=== PATIENT | male | born 1995 | race Caucasian/White ===

== ENCOUNTER 2016-08-04 20:49 | Emergency (ER) | payer BC ==
[~2016-08-04] VITALS: Ht 180.3 cm; Wt 74.8 kg
[~2016-08-04 20:49] MED LIST: NORCO 325-5 MG1 TAB PO; VEETIDS250 MG PO
== END 2016-08-04 21:40 | disposition short-term general hospital (02) ==
LOC: ER 20:49
PROC: 0HQFXZZ Repair Right Hand Skin, External Approach (ICD-10-PCS; principal; 2016-08-04)
DX: S61.411A Laceration without foreign body of right hand, initial encounter (principal); Z23 Encounter for immunization; W25.XXXA Contact with sharp glass, initial encounter; Y93.G1 Activity, food preparation and clean up